=== PATIENT | male | born 2000 | race Caucasian/White ===

== ENCOUNTER 2019-01-16 11:16 | Emergency (ER) | payer OTHER ==
[~2019-01-16] VITALS: Ht 175.3 cm; Wt 93.2 kg
[2019-01-16 11:19] VITALS: BP 140/80; PULSE 104; RESP 18; Ht 175.3 cm; Wt 93.2 kg
[2019-01-16] MEDS ORDERED: PENI500T PO (12:38)
[2019-01-16] MEDS ORDERED: IBUP-1542 PO (12:38)
--- NOTE | 2019-01-16 12:41 | ERD ---
ER Documentation Chief Complaint Chief Complaint sore throat x 3 weeks, finished antibiotics 3 days ago HPI 18 old male presents for sore throat times 3 weeks. Patient states that he went to a clinic couple weeks ago for the same issue was given some antibiotics noted to be azithromycin. He took the medication, completed the course without relief. Patient return to the clinic for the same symptoms however at this time he was given a steroid cream. He states that the cream has been working he continues to have sore throat. He denies cough. He has subjective fever. No significant past medical history. ROS All systems reviewed and are negative except as per history of present illness. Medications Home Meds Active Scripts Ibuprofen* (Motrin*) 600 Mg Tab, 600 MG PO Q6H PRN for PAIN AND OR ELEVATED TEMP, #30 TAB Prov:LEANDRA ELIZABETH 01/16/19 Penicillin V Potassium* (Penicillin V K*) 500 Mg Tab, 500 MG PO Q8 for strep throat for 10 Days, #30 TAB Prov:LEANDRA ELIZABETH 01/16/19 Allergies Allergies: Coded Allergies: No Known Allergy (Unverified , 01/16/19) PMhx/Soc History of Surgery: No Anesthesia Reaction: No Hx Neurological Disorder: No Hx Respiratory Disorders: No Hx Cardiac Disorders: No Hx Psychiatric Problems: No Hx Miscellaneous Medical Probl: No Hx Alcohol Use: No Hx Substance Use: No Hx Tobacco Use: No Smoking Status: Never smoker Physical Exam Vitals Vital Signs Date Temp Pulse Resp B/P (MAP) Pulse Ox O2 O2 Flow FiO2 Time Delivery Rate 01/16/19 98.5 104 18 140/80 98 11:19 (100) Physical Exam Const: No acute distress Head: Atraumatic Eyes: Normal Conjunctiva ENT: Normal External Ears, bilateral tympanic membrane intact without erythema or bulging noted, nose and Mouth examination normal, bilateral tonsillar swelling with exudate noted Neck: Full range of motion. No meningismus. Resp: Clear to auscultation bilaterally, no wheezing, rales, rhonchi Cardio: Regular rate and rhythm, no murmurs Skin: No petechiae or rashes Ext: No cyanosis, or edema Neur: Awake and alert Psych: Normal Mood and Affect Results 24 hrs Current Medications Medications Dose Sig/Vandana Start Time Status Last (Trade) Ordered Route PRN Stop Time Admin Dose Reason Admin Ibuprofen 600 mg ONCE ONCE 01/16/19 DC 01/16/19 (Motrin) PO 13:00 01/16/19 12:44 13:00 Procedures/MDM Medical Decision Making: Differential diagnosis includes but not limited to upper respiratory infection, pneumonia, sepsis, meningitis, strep throat Patient appeared well on physical examination, nontoxic appearing. Lungs were clear to auscultation bilaterally. There is low suspicion for pneumonia, sepsis, meningitis. There was bilateral tonsillar swelling and exudates noted on physical examination Patient met 3 of 4 Cent[facility] criteria. Therefore decision was made to treat the patient empirically with penicillin. Patient's prior use of azithromycin possible the did not work due to resistance. Patient given prescription for supportive medications and 10 days of penicillin. Patient advised to follow up with PCP in 1-2 days. Patient advised to return to ED for new or worsening symptoms. Patient stable on discharge from the ED. Disclaimer: Inadvertent spelling and grammatical errors are likely due to EHR/dictation software use and do not reflect on the overall quality of patient care. Also, please note that the electronic time recorded on this note does not necessarily reflect the actual time of the patient encounter. Departure Diagnosis: Primary Impression: Strep pharyngitis Condition: Fair Patient Instructions: Pharyngitis, Strep (Presumed) Referrals: [facility] YOU HAVE RECEIVED A MEDICAL SCREENING EXAM AND THE RESULTS INDICATE THAT YOU DO NOT HAVE A CONDITION THAT REQUIRES URGENT TREATMENT IN THE EMERGENCY DEPARTMENT. FURTHER EVALUATION AND TREATMENT OF YOUR CONDITION CAN WAIT UNTIL YOU ARE SEEN IN YOUR DOCTORS OFFICE WITHIN THE NEXT 1-2 DAYS. IT IS YOUR RESPONSIBILITY TO MAKE AN APPOINTMENT FOR FOLOW-UP CARE. IF YOU HAVE A PRIMARY DOCTOR --you should call your primary doctor and schedule an appointment IF YOU DO NOT HAVE A PRIMARY DOCTOR YOU CAN CALL OUR PHYSICIAN REFERRAL HOTLINE AT IF YOU CAN NOT AFFORD TO SEE A PHYSICIAN YOU CAN CHOSE FROM THE FOLLOWING [facility] [id number]. [facility] [address] [facility] [facility] [address] [facility] [address] [facility] [address] [facility]. [facility]. [address] Additional Instructions: Call your primary care doctor TOMORROW for an appointment during the next 1-2 days.See the doctor sooner or return here if your condition worsens before your appointment time. LEANDRA ELIZABETH DO Jan 16, 2019 12:41
[2019-01-16] MEDS ORDERED: IBUPROFEN 600 MG TAB PO ONE (13:00)
== END 2019-01-16 12:57 | disposition home or self-care (01) ==
LOC: FTE 11:16
DX: J02.0 Streptococcal pharyngitis (principal)
CPT/HCPCS: Z7502; Z7610; 99283